=== PATIENT | male | born 1995 | race Caucasian/White ===

== ENCOUNTER 2018-08-09 16:17 | Emergency (ER) | payer OTHER ==
[~2018-08-09] VITALS: Ht 170.2 cm; Wt 95.4 kg
[2018-08-09] MEDS ORDERED: NAPR-837 PO (17:41)
[2018-08-09] MEDS ORDERED: NAPROXEN 250 MG TAB PO ONE (17:45)
[2018-08-09 17:46] VITALS: BP 128/64
--- NOTE | 2018-08-10 07:17 | REP ---
CHEST: Two views. There is no evidence of acute infiltrate. No pleural effusion is seen. The heart is normal in size. The mediastinal silhouette is unremarkable. The visualized osseous structures are intact. IMPRESSION: No acute pulmonary disease. Electronically Signed by Ezequiel Gutierrez MD 08/10/2018 09:22 A
== END 2018-08-09 17:54 | disposition home or self-care (01) ==
LOC: M ED 16:17
DX: M94.0 Chondrocostal junction syndrome [Tietze] (principal); Z87.891 Personal history of nicotine dependence

== ENCOUNTER → 2018-11-23 | Outpatient (CLI) | payer OTHER ==
[~2018-11-23] MED LIST: NAPR-837 PO
--- NOTE | 2018-11-23 18:34 | REP ---
TRIPLE PHASE BONE SCAN LOWER LEGS: Following the intravenous administration of 21.9 millicuries of technetium 99M MDP, patient's lower legs were imaged in the flow phase in the anterior and posterior projections showing symmetrical blood flow. Immediate blood pool and 2 hour delayed images are performed of the lower legs in multiple projections. There is minimal increased blood pooling in the region of the distal right tibia. Delayed images show increased linear uptake along the tibial shafts bilaterally suggesting bilateral stress periostitis or bills splints. There was mild increased delayed uptake in the distal right tibia, most consistent with a stress fracture. Electronically Signed by Ezequiel Gutierrez MD 11/24/2018 11:11 A
== END ==
LOC: M RAD 10:46
DX: M79.661 Pain in right lower leg (principal)
CPT/HCPCS: 78315; A9503

== ENCOUNTER 2019-06-17 14:56 | Inpatient (IN) | payer OTHER ==
[~2019-06-17] VITALS: Ht 170.2 cm; Wt 99.3 kg
[2019-06-17 15:54] LABS: HEMATOCRIT 43.7 % (42.0-52.0); HEMOGLOBIN 14.5 g/dl (13.5-17.5); MEAN CORPUSCULAR HEMOGLOBIN 29.6 pg (27.0-33.0); MEAN CORPUSCULAR HGB CONC 33.2 g/dl (32.0-36.5); MEAN CORPUSCULAR VOLUME 89.2 fl (80.0-96.0); PLATELET COUNT, AUTOMATED 265 10^3/uL (150-450)
[2019-06-17 16:12] LABS: AMPHETAMINES LEVEL URINE NEGATIVE (NEGATIVE); BARBITURATES URINE NEGATIVE (NEGATIVE); BENZODIAZEPINES URINE NEGATIVE (NEGATIVE); CANNABINOIDS URINE NEGATIVE (NEGATIVE); COCAINE METABOLITE URINE NEGATIVE (NEGATIVE); METHADONE URINE NEGATIVE (NEGATIVE); OPIATES URINE NEGATIVE (NEGATIVE); PHENCYCLIDINE URINE NEGATIVE (NEGATIVE)
[2019-06-17] MEDS ORDERED: LORazepam 2 MG TAB PO STA (16:21)
[2019-06-17 16:22] LABS: ACETAMINOPHEN LEVEL < 2.0 UG/ML (10.0-30.0); ALBUMIN 4.5 GM/DL (3.2-5.2); ALT/SGPT 43 U/L (12-78); BILIRUBIN,DIRECT 0.3 MG/DL (0.0-0.2); BILIRUBIN,TOTAL 0.9 MG/DL (0.2-1.0); BLOOD UREA NITROGEN 21 MG/DL (7-18); CALCIUM LEVEL 9.2 MG/DL (8.5-10.1); CARBON DIOXIDE LEVEL 29 MEQ/L (21-32); CHLORIDE LEVEL 106 MEQ/L (98-107); CREATININE FOR GFR 1.13 MG/DL (0.70-1.30); ETHYL ALCOHOL (ETHANOL) 0.003 % (0.000-0.010); GLOMERULAR FILTRATION RATE > 60.0 (>60); GLUCOSE, FASTING 89 MG/DL (70-100); SALICYLATE LEVEL < 1.7 MG/DL (5.0-30.0); SODIUM LEVEL 141 MEQ/L (136-145); TOTAL PROTEIN 7.5 GM/DL (6.4-8.2)
[2019-06-17] MEDS ORDERED: MULT-4 PO (18:10)
[2019-06-17] MEDS ORDERED: NAPR-885 PO (18:10)
[2019-06-17] MEDS ORDERED: ACETAMINOPHEN TAB 650MG DOSE (2X325MG) PO PRN (18:15)
[2019-06-17] MEDS ORDERED: MAALOX 30 ML SUSP *UDC PO PRN (18:15)
[2019-06-17] MEDS ORDERED: MOM 30ML SUSPENSION UDC PO PRN (18:15)
[2019-06-17] MEDS ORDERED: traZODone 50 MG TAB PO PRN (18:15)
[2019-06-17 21:00] VITALS: BP 145/90
[2019-06-18] MEDS ORDERED: NICOTINE 21MG/24HR 1 EA TRANSDERMAL TD SCH (05:00)
[2019-06-18 06:09] VITALS: BP 98/50
--- NOTE | 2019-06-18 08:59 | HPEPDOC ---
[facility] Medical History & Physical Date of Admission Jun 18, 2019 Date of Service: Jun 18, 2019 History and Physical CHIEF COMPLAINT: Depression HISTORY OF PRESENT ILLNESS: 23-year-old male with past medical history of anxie ty and depression is admitted to inpatient mental health unit for worsening depression. 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 Patient is admitted this time for worsening depression, no other complaints. Patient does not have any medical complaints at this time, denies any shortness of breath, chest pain, nausea, vomiting, abdominal pain or diarrhea. 10 point review of system is negative except for above PAST MEDICAL HISTORY: 1. Anxiety. 2. Depression. PAST SURGICAL HISTORY: 1. Tonsillectomy. SOCIAL HISTORY: Social smoker. Previous heavy drinker, quit 6 months ago. Denies drug use FAMILY HISTORY: No family history of cancer, heart disease ALLERGIES: Please see below. HOME MEDICATIONS: Please see below. PHYSICAL EXAMINATION: VITAL SIGNS: Please see below. GENERAL: No distress HEENT: Normocephalic, atraumatic, moist mucous membranes NECK: Supple CARDIOVASCULAR EXAMINATION: S1, S2, no murmurs RESPIRATORY EXAMINATION: Clear to auscultation, no wheezing ABDOMINAL EXAMINATION: Soft, nontender, nondistended, positive bowel sounds EXTREMITIES: Range of motion intact SKIN: No rash NEUROLOGICAL EXAMINATION: Alert and oriented 3, no focal deficits PSYCHIATRIC EXAMINATION: Calm and cooperative LABORATORY DATA: See below. MICROBIOLOGY: Please see below. ASSESSMENT: 23-year-old male with past medical history of anxiety and depression is admitted inpatient mental health unit for worsening depression. PLAN: 1. Depression. Management as per primary team Patient does not have any active medical issues at this time, please reconsult as needed. Vital Signs Vital Signs Date Time Temp Pulse Resp B/P (MAP) Pulse Ox O2 Delivery O2 Flow Rate FiO2 06/18/19 06:09 98.2 81 16 98/50 (66) 06/17/19 21:00 99 Room Air Laboratory Data Labs 24H Laboratory Tests 2 06/17/19 15:26: Nucleated Red Blood Cells % (auto) 0.0, Anion Gap 6L, Glomerular Filtration Rate > 60.0, Calcium Level 9.2, Total Bilirubin 0.9, Direct Bilirubin 0.3H, Aspartate Amino Transf (AST/SGOT) 37, Alanine Aminotransferase (ALT/SGPT) 43, Alkaline Phosphatase 70, Total Protein 7.5, Albumin 4.5, Albumin/Globulin Ratio 1.50, Thyroid Stimulating Hormone (TSH) 1.090, Salicylates Level < 1.7L, Urine Opiates Screen NEGATIVE, Urine Methadone Screen NEGATIVE, Acetaminophen Level < 2.0L, Urine Barbiturates Screen NEGATIVE, Urine Phencyclidine Screen NEGATIVE, Urine Amphetamines Screen NEGATIVE, Urine Benzodiazepines Screen NEGATIVE, Urine Cocaine Metabolite Screen NEGATIVE, Urine Cannabinoids Screen NEGATIVE, Ethyl Alcohol Level 0.003 CBC/BMP Laboratory Tests 06/17/19 15:26 Home Medications Scheduled Multivit-Min/Folic/Vit K/Lycop (Men's Multivitamin Tablet) 1 Each Tablet, 1 EACH PO DAILY Scheduled PRN Naproxen (Naproxen) 500 Mg Tablet, 500 MG PO BID PRN for PAIN Allergies Coded Allergies: No Known Drug Allergies (Verified Allergy, Unknown, 06/17/19) A-FIB/CHADSVASC A-FIB History Current/History of A-Fib/PAF?: No LILIANA GALO MD Jun 18, 2019 08:59
[2019-06-18] MEDS: NICOTINE 21MG/24HR 1 EA TRANSDERMAL TD SCH (10:07)
--- NOTE | 2019-06-18 11:15 | MHHPEPDOC ---
General Date Of Admission: Jun 17, 2019 Legal Status: 9.39 Chief Complaint "I want to shoot myself.". History of Present Illness HISTORY OF THE PRESENT ILLNESS: Patient is a 23 -year-old , AD, male, with a history of depression and no history of psych admission/SA who was sent to ED by EMS after he told a friend he was having suicidal thoughts and then was referred to [facility] to evaluate and then sent here. Per ED, pt reported feeling frustrated and depressed due to issus with his Alejandro and others in the . Pt reported in the ED significant stressors regarding the and his Alejandro that brought him to the point of driving to [place] where his in laws live and where he keeps his shot gun with plans to shoot himself but his called called just to talk and that caused him to turn around. 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 Endorsed to trust in his leadership as he feels he's treated poorly by them and called names. Enorsed suicidal thaoughts for the past year due to his Alejandro. Psychiatric Review of Systems Depression (2 or more weeks): depressed mood, difficulty concentrating, suicidal thoughts Ale (4 or more days of): denies Psychosis: denies PTSD: denies Anxiety: situational anxiety, stressor related anxiety Anxiety/ 6 months or more of: restlessness, keyed up, difficulty concentrating, irritability Past Psychiatric History Previous Psychiatric Diagnosis: denies Previous Psychiatric Admissions: denies Suicide Attempts: denies Psychiatric Follow-up: [facility] Psychiatric medications: denies Past Medical History Medical Problems tibia fracture 1-2yrs ago Head Injury: No Seizures: No Hospitalizations: No Surgeries: No Family Medical/Psychiatric HX Medical Problems noncontributory Psychiatric Disorders: No Addiction: Yes (father is an alcoholic) Suicide Attemps/Completions: No Addiction History nicotine, other (utox neg) Social History Childhood: born and raised in [place], [place]; 2 parent home, 1 younger brother, father was an alcoholic, fair childhood Abuse/Trauma:denies Current Living Situation: lives in [place] with his Education: high school edu Employment: [employer], [employer], [employer], 3yrs Social Support Marital: , no kids Mental Status Examination General Appearance: well groomed, appears stated age, hospital scubs/clothing Build: overweight Demeanor: average Eye Contact: average Activity: average Behavior: cooperative, other (playing the victum) Speech: clear, normal volume, reg/rate,rhythm,volume Mood: depressed, anxious Mood "anxious" Affect: full, appropriate, anxious Thought Process: logical/linear, intact Thought Content (Delusions): none reported, denies SI, HI, AVH Thought Content (Other): none reported Thought Content (Aggressive): none reported Perception (Hallucinations): none reported Perception (Other): none reported Cognition (Impairment of): none reported Cognition(Intelligence Est.): average Oriented: Awake, Alert, Oriented times three Insight: fair Judgment: Fair Psychosis: Denies Diagnoses Unspecified depression R/O adjustment d/o with depressed mood and anxiety r/o Generalized anxiety d/o r/o malingering d/o A-FIB/CHADSVASC A-FIB History Current/History of A-Fib/PAF?: No Assessment Pt seen and states "I tried to Cameron Nicole" myself stating he owns a gun that is kept at his parent's house in [place] and that he was driving there to shot himself but his called him which made him stop and turn around and go home. 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 States he's had to go to the field a lot and has had to cancel his mental ronaldo and medical appts and states earlier this week in the field and had to do a run but due to his injury "I slowed every down" which caused him sig nificant anxiety and feeling like "a piece of shit." States "I had going to work" due to the anxiety he feels at work. Feels his leadership hate's him and is disrespectful. States his daily anxiety is the cause of depression. Discussed starting zoloft for anxiety with mood and anxiety, risks/benefits discussed, and pt agreeable. Will provide vistaril prn anxiety. Denies SI/HI, hallucinations, delusions today. Feels safe here. Initial Treatment Plan 1. Patient was admitted on a 9.39 status. 2. Complete history was obtained. 3. With patients permission, family will be contacted and database will be expanded. 4. Patients medication regimen will be reviewed and changed accordingly. 5. Patient will be provided with protected environment. 6. Patient will be treated with individual, group, and milieu therapies. 7. Patient will receive supportive psych-education. 8. Discharge planning will commence immediately. 9. Outpatient follow-up treatment will be strongly recommended. 10. The initial treatment plan will focus initially on: * Depression. * Risk for suicide. 11. zoloft 25mg daily, vistaril 50mg q4hr prn anxiety ESTIMATED LENGTH OF STAY: 5-7 DAYS. TIME SPENT COUNSELING AND COORDINATING INITIAL CARE: 60 minutes. Vital Signs Vital Signs Date Time Temp Pulse Resp B/P (MAP) Pulse Ox O2 Delivery O2 Flow Rate FiO2 06/18/19 06:09 98.2 81 16 98/50 (66) 06/17/19 21:00 99 Room Air Laboratory Data 24H Labs Laboratory Tests 2 06/17/19 15:26: Nucleated Red Blood Cells % (auto) 0.0, Anion Gap 6L, Glomerular Filtration Rate > 60.0, Calcium Level 9.2, Total Bilirubin 0.9, Direct Bilirubin 0.3H, Aspartate Amino Transf (AST/SGOT) 37, Alanine Aminotransferase (ALT/SGPT) 43, Alkaline Phosphatase 70, Total Protein 7.5, Albumin 4.5, Albumin/Globulin Ratio 1.50, Thyroid Stimulating Hormone (TSH) 1.090, Salicylates Level < 1.7L, Urine Opiates Screen NEGATIVE, Urine Methadone Screen NEGATIVE, Acetaminophen Level < 2.0L, Urine Barbiturates Screen NEGATIVE, Urine Phencyclidine Screen NEGATIVE, Urine Amphetamines Screen NEGATIVE, Urine Benzodiazepines Screen NEGATIVE, Urine Cocaine Metabolite Screen NEGATIVE, Urine Cannabinoids Screen NEGATIVE, Ethyl Alcohol Level 0.003 CBC/BMP Laboratory Tests 06/17/19 15:26 Medications Scheduled Multivit-Min/Folic/Vit K/Lycop (Men's Multivitamin Tablet) 1 Each Tablet, 1 EACH PO DAILY, (Reported) Scheduled PRN Naproxen (Naproxen) 500 Mg Tablet, 500 MG PO BID PRN for PAIN, (Reported) Allergies Coded Allergies: No Known Drug Allergies (Verified Allergy, Unknown, 06/17/19) CAMRYN SIMONS DO Jun 18, 2019 10:05 am
[2019-06-18] MEDS ORDERED: SERTRALINE HCL 25 MG TABLET PO ONE (11:30)
[2019-06-18 16:18] VITALS: BP 122/82
[2019-06-18] MEDS: hydrOXYzine 50 MG TAB PO PRN (19:36)
[2019-06-19 06:07] VITALS: BP 130/76
[2019-06-19] MEDS: SERTRALINE HCL 25 MG TABLET PO SCH (09:17)
[2019-06-19] MEDS: NICOTINE 21MG/24HR 1 EA TRANSDERMAL TD SCH (09:18)
[2019-06-19] MEDS: hydrOXYzine 50 MG TAB PO PRN ×2 (09:19→21:25)
[2019-06-19] MEDS ORDERED: traZODone 100 MG TAB PO PRN (12:15)
[2019-06-19 15:30] VITALS: BP 153/81
--- NOTE | 2019-06-19 15:57 | MHIPN ---
DATE: 06/19/2019 The patient today states, "I am doing better." He feels that this is due to the fact that he is away from the stress that he was under. He denies being suicidal. He says that he was still having frequent awakening last night with trazodone, which is only at 50 mg right now. MENTAL STATUS EXAMINATION: He is alert and oriented times three. He is verbally spontaneous. Eye contact is good. There is no formal thought disorder noted. Mood is "better." Affect is full range and appropriate to mood. He is not psychotic. He denies suicidal or homicidal ideations. Concentration is fair. Memory is intact. Insight and judgment fair. DIAGNOSES: 1. Unspecified depressive disorder. TREATMENT PLAN: At this point, we will continue to monitor the patient for continued elevation and stabilization of his mood and continued resolution of suicidal ideations. He seems to be tolerating his Zoloft and Vistaril well so far.
[2019-06-20 06:13] VITALS: BP 131/80
[2019-06-20] MEDS: SERTRALINE HCL 25 MG TABLET PO SCH (08:54)
[2019-06-20] MEDS: hydrOXYzine 50 MG TAB PO PRN ×2 (08:54→22:23)
[2019-06-20] MEDS: NICOTINE 21MG/24HR 1 EA TRANSDERMAL TD SCH (08:56)
--- NOTE | 2019-06-20 13:40 | MHIPN ---
DATE OF SERVICE: 06/20/2019 The patient today states that he was still tossing and turning last night and so this is despite the increase in the Zoloft to 100 mg. He says that his mood continues to get better, but again he feels this is because of the fact that he is in a stress free environment in the hospital. He is denying suicidal thoughts. MENTAL STATUS EXAMINATION: This patient is alert and oriented times three. Eye contact fairly good. He is verbally spontaneous. There is no formal thought disorder noted. His mood is better. Affect is full range and appropriate. He is not psychotic. He is not suicidal or homicidal. Concentration is fair. Memory intact. Insight and judgment is fair. DIAGNOSIS: Unspecified depressive disorder. TREATMENT PLAN: At this point, will continue to monitor the patient for continued elevation and stabilization of his mood and continued resolution of suicidal ideations.
[2019-06-20 16:03] VITALS: BP 139/69
[2019-06-20] MEDS: traZODone 50 MG TAB PO PRN (22:39)
[2019-06-21 06:51] VITALS: BP 99/52
--- NOTE | 2019-06-21 09:11 | MHIPNPDOC ---
[facility] Progress Note Progress Note DATE OF SERVICE: 06/21/19 HISTORY: Patient is a 23 -year-old , AD, male, with a history of depression and no history of psych admission/SA who was sent to ED by EMS after he told a friend he was having suicidal thoughts and then was referred to [facility] to evaluate and then sent here. Per ED, pt reported feeling frustrated and depressed due to issus with his Alejandro and others in the . Pt reported in the ED significant stressors regarding the and his Alejandro that brought him to the point of driving to [place] where his in laws live and where he keeps his shot gun with plans to shoot himself but his called called just to talk and that caused him to turn around. 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 Endorsed to trust in his leadership as he feels he's treated poorly by them and called names. Enorsed suicidal thaoughts for the past year due to his Alejandro. Pt seen and states "I tried to Cameron Cobain" myself stating he owns a gun that is kept at his parent's house in [place] and that he was driving there to shot himself but his called him which made him stop and turn around and go home. 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 States he's had to go to the field a lot and has had to cancel his mental ronaldo and medical appts and states earlier this week in the field and had to do a run but due to his injury "I slowed every down" which caused him significant anxiety and feeling like "a piece of shit." States "I had going to work" due to the anxiety he feels at work. Feels his leadership hate's him and is disrespectful. States his daily anxiety is the cause of depression. Discussed starting zoloft for anxiety with mood and anxiety, risks/benefits discussed, and pt agreeable. Will provide vistaril prn anxiety. Denies SI/HI, hallucinations, delusions today. Feels safe here. VITAL SIGNS: See below. NEW TEST RESULTS: See below. CURRENT MEDICATIONS: See below. MENTAL STATUS EXAMINATION: General Appearance: well groomed, appears stated age, hospital scrubs/clothing Build: overweight Demeanor: average Eye Contact: average Activity: average Behavior: cooperative, other (playing the victim), manipulative Speech: clear, normal volume, reg/rate,rhythm,volume Mood: less depressed, continues to have anxious Mood "ok" Affect: full, appropriate, anxious Thought Process: logical/linear, intact, attempting to be secretive and manipulative Thought Content (Delusions): none reported, denies SI, HI, AVH Thought Content (Other): none reported Thought Content (Aggressive): none reported Perception (Hallucinations): none reported Perception (Other): none reported Cognition (Impairment of): none reported Cognition(Intelligence Est.): average Oriented: Awake, Alert, Oriented times three Insight: fair Judgment: Fair Psychosis: Denies DIAGNOSES: Unspecified depression R/O adjustment d/o with depressed mood and anxiety r/o Generalized anxiety d/o r/o malingering d/o ASSESSMENT:Pt seen and states that his mood is "ok". States he's having anxiety mostly regarding meeting with his Alejandro and having to discuss with them his reasons for admission which he admits he doesn't want them to know but advised 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 States vistaril isn't very beneficial for his anxiety. Discussed starting inderal for anxiety with pt, risks/benefits dis cussed, and pt agrees to start it. States he slept well last night. Feels he is tolerating his zoloft and it's beneficial. He is attending groups and finding them helpful. He denies SI/HI, hallucinations, delusions. Pt feels safe here. MANAGEMENT PLAN: start inderal tid for anxiety, d/c planning zoloft 25mg daily vistaril 50mg q4hr prn anxiety inderal 10mg tid TIME SPENT: 30 minutes. Vital Signs Vital Signs Date Time Temp Pulse Resp B/P (MAP) Pulse Ox O2 Delivery O2 Flow Rate FiO2 2/3/20 06:51 97.0 77 12 99/52 (68) 06/18/19 16:18 99 Room Air Current Medications Current Medications Medications (Trade) Dose Ordered Sig/Anna Route PRN Reason Start Time Stop Time Status Last Admin Dose Admin Acetaminophen (Tylenol Tab) 650 mg Q6HP PRN PO HEADACHE or DISCOMFORT 06/17/19 18:15 Al Hydrox/Mg Hydrox/Simethicone (Mylanta) 30 ml Q4HP PRN PO HEARTBURN/INDIGESTION 06/17/19 18:15 Home Med (Med Rec Complete!) ASDIRECTED XX 06/17/19 18:15 06/17/19 18:12 DC Hydroxyzine HCl (Atarax) 50 mg Q4HP PRN PO ANXIETY/AGITATION 06/18/19 11:15 06/20/19 22:23 Lorazepam (Ativan) 2 mg STAT STAT PO 06/17/19 16:21 06/17/19 16:22 DC 06/17/19 16:26 Magnesium Hydroxide (Milk Of Magnesia) 30 ml DAILYPRN PRN PO CONSTIPATION 06/17/19 18:15 Nicotine (Nicoderm Cq 21mg) 1 patch DAILY TD 06/18/19 05:00 06/18/19 04:45 DC Nicotine (Nicoderm Cq 21mg) 1 patch DAILY TD 06/18/19 09:00 06/20/19 08:56 Sertraline HCl (Zoloft) 25 mg DAILY PO 06/19/19 09:00 06/20/19 08:54 Trazodone HCl (Desyrel) 50 mg QHSP PRN PO INSOMNIA 06/17/19 18:15 06/19/19 12:16 DC 06/18/19 21:49 Trazodone HCl (Desyrel) 100 mg QHSP PRN PO INSOMNIA 06/19/19 12:15 06/20/19 11:31 DC 06/19/19 22:01 Trazodone HCl (Desyrel) 150 mg QHSP PRN PO INSOMNIA 06/20/19 11:30 06/20/19 22:39 Allergies Coded Allergies: No Known Drug Allergies (Verified Allergy, Unknown, 06/17/19) CAMRYN SIMONS DO Jun 21, 2019 9:11 am
[2019-06-21] MEDS: SERTRALINE HCL 25 MG TABLET PO SCH (10:08)
[2019-06-21] MEDS: PROPRANOLOL 10 MG TAB PO SCH ×3 (10:09→20:53)
[2019-06-21] MEDS: NICOTINE 21MG/24HR 1 EA TRANSDERMAL TD SCH (10:10)
[2019-06-21 16:00] VITALS: BP 135/94
[2019-06-21] MEDS: traZODone 50 MG TAB PO PRN (22:15)
[2019-06-22 06:14] VITALS: BP 115/58
[2019-06-22] MEDS: PROPRANOLOL 10 MG TAB PO SCH ×3 (08:18→20:44)
[2019-06-22] MEDS: SERTRALINE HCL 25 MG TABLET PO SCH (08:18)
[2019-06-22] MEDS: NICOTINE 21MG/24HR 1 EA TRANSDERMAL TD SCH (08:18)
--- NOTE | 2019-06-22 10:11 | MHIPNPDOC ---
[facility] Progress Note Progress Note DATE OF SERVICE: 06/22/19 HISTORY: Patient is a 23 -year-old , AD, male, with a history of depression and no history of psych admission/SA who was sent to ED by EMS after he told a friend he was having suicidal thoughts and then was referred to [facility] to evaluate and then sent here. Per ED, pt reported feeling frustrated and depressed due to issus with his Alejandro and others in the . Pt reported in the ED significant stressors regarding the and his Alejandro that brought him to the point of driving to [place] where his in laws live and where he keeps his shot gun with plans to shoot himself but his called called just to talk and that caused him to turn around. 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 Endorsed to trust in his leadership as he feels he's treated poorly by them and called names. Enorsed suicidal thaoughts for the past year due to his Alejandro. Pt seen and states "I tried to Cameron Cobain" myself stating he owns a gun that is kept at his parent's house in [place] and that he was driving there to shot himself but his called him which made him stop and turn around and go home. 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 States he's had to go to the field a lot and has had to cancel his mental ronaldo and medical appts and states earlier this week in the field and had to do a run but due to his injury "I slowed every down" which caused him significant anxiety and feeling like "a piece of shit." States "I had going to work" due to the anxiety he feels at work. Feels his leadership hate's him and is disrespectful. States his daily anxiety is the cause of depression. Discussed starting zoloft for anxiety with mood and anxiety, risks/benefits discussed, and pt agreeable. Will provide vistaril prn anxiety. Denies SI/HI, hallucinations, delusions today. Feels safe here. VITAL SIGNS: See below. NEW TEST RESULTS: See below. CURRENT MEDICATIONS: See below. MENTAL STATUS EXAMINATION: General Appearance: well groomed, appears stated age, hospital scrubs/clothing Build: overweight Demeanor: average Eye Contact: average Activity: average Behavior: cooperative, other (playing the victim), manipulative Speech: clear, normal volume, reg/rate,rhythm,volume Mood: less depressed, less anxious Mood "alright" Affect: full, appropriate, less anxious Thought Process: logical/linear, intact Thought Content (Delusions): none reported, denies SI, HI, AVH Thought Content (Other): none reported Thought Content (Aggressive): none reported Perception (Hallucinations): none reported Perception (Other): none reported Cognition (Impairment of): none reported Cognition(Intelligence Est.): average Oriented: Awake, Alert, Oriented times three Insight: fair Judgment: Fair Psychosis: Denies DIAGNOSES: Unspecified depression R/O adjustment d/o with depressed mood and anxiety r/o Generalized anxiety d/o r/o malingering d/o ASSESSMENT:Pt seen and states that his mood is "alright". 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 States inderal is very beneficial for his anxiety, likes it, and is tolerating it well. States he slept well last night. Feels he is tolerating his zoloft and it's beneficial. He is attending groups and finding them helpful. He denies SI/HI, hallucinations, delusions. Pt feels safe here. Hopeful to go home tomorrow with his Alejandro. MANAGEMENT PLAN: d/c planning tomorrow zoloft 25mg daily vistaril 50mg q4hr prn anxiety inderal 10mg tid TIME SPENT: 30 minutes. Vital Signs Vital Signs Date Time Temp Pulse Resp B/P (MAP) Pulse Ox O2 Delivery O2 Flow Rate FiO2 06/22/19 08:18 90 130/82 06/22/19 06:14 97.8 18 06/18/19 16:18 99 Room Air Current Medications Current Medications Medications (Trade) Dose Ordered Sig/Anna Route PRN Reason Start Time Stop Time Status Last Admin Dose Admin Acetaminophen (Tylenol Tab) 650 mg Q6HP PRN PO HEADACHE or DISCOMFORT 06/17/19 18:15 Al Hydrox/Mg Hydrox/Simethicone (Mylanta) 30 ml Q4HP PRN PO HEARTBURN/INDIGESTION 06/17/19 18:15 Home Med (Med Rec Complete!) ASDIRECTED XX 06/17/19 18:15 06/17/19 18:12 DC Hydroxyzine HCl (Atarax) 50 mg Q4HP PRN PO ANXIETY/AGITATION 06/18/19 11:15 06/20/19 22:23 Lorazepam (Ativan) 2 mg STAT STAT PO 06/17/19 16:21 06/17/19 16:22 DC 06/17/19 16:26 Magnesium Hydroxide (Milk Of Magnesia) 30 ml DAILYPRN PRN PO CONSTIPATION 06/17/19 18:15 Nicotine (Nicoderm Cq 21mg) 1 patch DAILY TD 06/18/19 05:00 06/18/19 04:45 DC Nicotine (Nicoderm Cq 21mg) 1 patch DAILY TD 06/18/19 09:00 06/22/19 08:18 Propranolol HCl (Inderal) 10 mg TID PO 06/21/19 09:00 06/22/19 08:18 Sertraline HCl (Zoloft) 25 mg DAILY PO 06/19/19 09:00 06/22/19 08:18 Trazodone HCl (Desyrel) 50 mg QHSP PRN PO INSOMNIA 06/17/19 18:15 06/19/19 12:16 DC 06/18/19 21:49 Trazodone HCl (Desyrel) 100 mg QHSP PRN PO INSOMNIA 06/19/19 12:15 06/20/19 11:31 DC 06/19/19 22:01 Trazodone HCl (Desyrel) 150 mg QHSP PRN PO INSOMNIA 06/20/19 11:30 06/21/19 22:15 Allergies Coded Allergies: No Known Drug Allergies (Verified Allergy, Unknown, 06/17/19) CAMRYN SIMONS DO Jun 22, 2019 10:11 am
[2019-06-22 16:04] VITALS: BP 134/77
[2019-06-22] MEDS: traZODone 50 MG TAB PO PRN (22:43)
[2019-06-23 07:26] VITALS: BP 130/84
[2019-06-23] MEDS: SERTRALINE HCL 25 MG TABLET PO SCH (08:21)
[2019-06-23 08:22] VITALS: BP 132/76
[2019-06-23] MEDS: PROPRANOLOL 10 MG TAB PO SCH (08:22)
[2019-06-23] MEDS: NICOTINE 21MG/24HR 1 EA TRANSDERMAL TD SCH (08:22)
[2019-06-23] MEDS ORDERED: TRAZ-252 PO (08:37)
[2019-06-23] MEDS ORDERED: PROP10TA56 PO (08:37)
[2019-06-23] MEDS ORDERED: SERT25TA21 PO (08:37)
[2019-06-23] MEDS ORDERED: HYDR50TA70 PO (08:37)
--- NOTE | 2019-06-23 08:37 | MHDSPDOC ---
[facility] Discharge Summary Discharge Summary DATE OF ADMISSION: Jun 17, 2019 at 6:12 pm DATE OF DISCHARGE: Jun 23, 2019 DISCHARGE DIAGNOSES: Unspecified depression R/O adjustment d/o with depressed mood and anxiety r/o Generalized anxiety d/o r/o malingering d/o REASON FOR ADMISSION: Patient is a 23 -year-old , AD, male, with a history of depression and no history of psych admission/SA who was sent to ED by EMS after he told a friend he was having suicidal thoughts and then was referred to [facility] to evaluate and then sent here. Per ED, pt reported feeling frustrated and depressed due to issus with his Alejandro and others in the . Pt reported in the ED significant stressors regarding the and his Alejandro that brought him to the point of driving to [place] where his in laws live and where he keeps his shot gun with plans to shoot himself but his called called just to talk and that caused him to turn around. 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 Endorsed to trust in his leadership as he feels he's treated poorly by them and called names. Enorsed suicidal thaoughts for the past year due to his Alejandro. Pt seen and states "I tried to [place] Cobain" myself stating he owns a gun that is kept at his parent's house in [place] and that he was driving there to shot himself but his called him which made him stop and turn around and go home. 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 States he's had to go to the field a lot and has had to cancel his mental ronaldo and medical appts and states earlier this week in the field and had to do a run but due to his injury "I slowed every down" which caused him significant anxiety and feeling like "a piece of shit." States "I had going to work" due to the anxiety he feels at work. Feels his leadership hate's him and is disrespectful. States his daily anxiety is the cause of depression. Discussed starting zoloft for anxiety with mood and anxiety, risks/benefits discussed, and pt agreeable. Will provide vistaril prn anxiety. Denies SI/HI, hallucinations, delusions today. Feels safe here. CONSULTANTS INVOLVED: none TREATMENT AND PROGRESS ON THE UNIT : Pt was admitted to [facility], seen for psychiatric assessment and started on zoloft 25mg daily for mood and inderal 10mg tid for anxiety. He was provided vistaril 50mg tid prn anxiety and trazodone 50mg qhs prn insomnia. Pt found his medications beneficial and tolerated them well. He attended groups daily during his stay. His symptoms improved with treatment. On day of discharge he denied depression, anxiety, insomnia, SI/HI, hallucinations, delusions. He was discharged home after Alejandro meeting with follow-up at [facility]. He felt safe for discharge DISCHARGE ASSESSMENT: Pt seen and states that his mood is "good" and that he's looking forward to going home today with his Alejandro. States his is supported and had her parents put the gun the have in a place unknown to the pt. States inderal is very beneficial for his anxiety, likes it, and is tolerating it well. States he slept well last night. Feels he is tolerating his zoloft and it's beneficial. He is attending groups and finding them helpful. He denies depression, anxiety, insomnia, SI/HI, hallucinations, delusions. Pt feels safe d/c home today with his Alejandro. MENTAL STATUS EXAMINATION ON DISCHARGE: General Appearance: well groomed, appears stated age, hospital scrubs/clothing Build: overweight Demeanor: average Eye Contact: average Activity: average Behavior: cooperative Speech: clear, normal volume, reg/rate,rhythm,volume Mood: euthymic, full range Mood "good" Affect: full, appropriate, congruent Thought Process: logical/linear, intact Thought Content (Delusions): none reported, denies SI, HI, AVH Thought Content (Other): none reported Thought Content (Aggressive): none reported Perception (Hallucinations): none reported Perception (Other): none reported Cognition (Impairment of): none reported Cognition(Intelligence Est.): average Oriented: Awake, Alert, Oriented times three Insight: good Judgment: good Psychosis: Denies MEDICATIONS ON DISCHARGE: zoloft 25mg daily vistaril 50mg tid prn anxiety trazodone 50mg qhs prn insomnia inderal 10mg tid PLAN/FOLLOWUP ARRANGEMENTS: AL home with [facility] with follow-up at [facility]. The amount of time spent in the coordination of care for this patient was approximately 30 minutes. Vital Signs/I&Os Vital Signs Date Time Temp Pulse Resp B/P (MAP) Pulse Ox O2 Delivery O2 Flow Rate FiO2 06/23/19 08:22 88 132/76 06/23/19 07:26 98.0 18 06/18/19 16:18 99 Room Air Medications Scheduled Multivit-Min/Folic/Vit K/Lycop (Men's Multivitamin Tablet) 1 Each Tablet, 1 EACH PO DAILY, (Reported) Scheduled PRN Naproxen (Naproxen) 500 Mg Tablet, 500 MG PO BID PRN for PAIN, (Reported) Allergies Coded Allergies: No Known Drug Allergies (Verified Allergy, Unknown, 06/17/19) CAMRYN SIMONS DO Jun 23, 2019 8:37 am
== END 2019-06-23 11:54 | disposition home or self-care (01) | DRG 881 ==
LOC: M ED 14:56 → M ED INP 18:12 → M PSY 20:03
PROVIDERS: ADMIT Psychiatry & Neurology Psychiatry; ATTEND Psychiatry & Neurology Psychiatry
DX: F32.9 Major depressive disorder, single episode, unspecified (principal); F41.1 Generalized anxiety disorder; F43.23 Adjustment disorder with mixed anxiety and depressed mood; Z76.5 Malingerer [conscious simulation]; Z81.1 Family history of alcohol abuse and dependence; Z56.4 Discord with boss and workmates; Z90.49 Acquired absence of other specified parts of digestive tract; F17.200 Nicotine dependence, unspecified, uncomplicated

== ENCOUNTER → 2023-06-24 | Outpatient (CLI) | payer OTHER ==
[~2023-06-24] MED LIST changes: +HYDR50TA70 PO; +ISOVUE-300 61% 100ML VIAL As Ordered ONE; +LIDOCAINE 1% MDV 20ML VIAL As Ordered ONE; +MULT-4 PO; +NAPR-885 PO; +PROP10TA56 PO; +SERT25TA21 PO; +TRAZ-252 PO; +TRIAMCINOLONE ACETONIDE SUSP 40MG/ML 1ML VIAL As Ordered ONE
== END ==
LOC: M RAD 14:42
PROVIDERS: ATTEND Orthopaedic Surgery
DX: M25.551 Pain in right hip (principal)
CPT/HCPCS: 20610; 77002; J3301; Q9967

== ENCOUNTER 2023-10-07 11:33 | Day surgery (SDC) | payer OTHER ==
[~2023-10-07] VITALS: Ht 172.7 cm; Wt 88.0 kg
[~2023-10-07 11:33] MED LIST changes: +ASHW500C PO; -ISOVUE-300 61% 100ML VIAL As Ordered ONE; -LIDOCAINE 1% MDV 20ML VIAL As Ordered ONE; +OMEG10002 PO; +PRES10CA2 PO; -TRIAMCINOLONE ACETONIDE SUSP 40MG/ML 1ML VIAL As Ordered ONE; +VITA100093 PO; +[UNRECOGNIZED DRUG - OTHER]
[2023-10-07] MEDS: NS 1,000 ML IV ONE (12:17)
[2023-10-07] MEDS ORDERED: LIDOCAINE 2% 100MG/5ML SDV (FOR ANES.) As Ordered ONE (12:47)
[2023-10-07] MEDS ORDERED: propofoL 200 MG/20 ML VIAL As Ordered ONE (12:47)
[2023-10-07] MEDS ORDERED: propofoL 500 MG/50 ML VIAL As Ordered ONE (12:47)
[2023-10-07] MEDS ORDERED: fentaNYL 100 MCG/2 ML INJECTION As Ordered ONE (12:48)
[2023-10-07 13:45] VITALS: BP 136/86; TEMP 97.9; O2SAT 99
== END 2023-10-07 14:06 | disposition home or self-care (01) ==
LOC: M OPP 11:33
PROVIDERS: ATTEND Internal Medicine Gastroenterology
DX: K29.50 Unspecified chronic gastritis without bleeding (principal); R10.13 Epigastric pain; R11.2 Nausea with vomiting, unspecified
CPT/HCPCS: 43239; 88305; J3010

== ENCOUNTER 2023-12-03 10:01 | Day surgery (SDC) | payer OTHER ==
[~2023-12-03] VITALS: Ht 172.7 cm; Wt 92.6 kg
[~2023-12-03 10:01] MED LIST changes: +ACETAMINOPHEN 1000MG 100ML IV BAG As Ordered ONE; +CETI-24 PO; +FLUTISP; +MIDAZOLAM INJ 2MG/2ML VIAL As Ordered ONE; +fentaNYL 100 MCG/2 ML INJECTION As Ordered ONE; +propofoL 200 MG/20 ML VIAL As Ordered ONE; +propofoL 500 MG/50 ML VIAL As Ordered ONE
[2023-12-03] MEDS: ceFAZolin SOD 2 GM in IV 1 EA IV ONE (10:45)
[2023-12-03] MEDS: LIDOCAINE 1% SDV 30ML VIAL As Ordered ONE (11:02)
[2023-12-03 11:20] VITALS: BP 122/66; TEMP 97.9; O2SAT 97
== END 2023-12-03 12:05 | disposition home or self-care (01) ==
LOC: M SDC 10:01
PROVIDERS: ATTEND Podiatrist Foot & Ankle Surgery
DX: M67.471 Ganglion, right ankle and foot (principal); Z90.89 Acquired absence of other organs; Z87.891 Personal history of nicotine dependence
CPT/HCPCS: 28090; 88304; J0131; J0665; J0690; J2250; J3010

== ENCOUNTER 2024-07-10 17:33 | Emergency (ER) | payer OTHER ==
[~2024-07-10] VITALS: Ht 172.7 cm; Wt 86.6 kg
[~2024-07-10 17:33] MED LIST changes: -ACETAMINOPHEN 1000MG 100ML IV BAG As Ordered ONE; -MIDAZOLAM INJ 2MG/2ML VIAL As Ordered ONE; -fentaNYL 100 MCG/2 ML INJECTION As Ordered ONE; -propofoL 200 MG/20 ML VIAL As Ordered ONE; -propofoL 500 MG/50 ML VIAL As Ordered ONE
[2024-07-10 17:49] VITALS: TEMP 96.8
[2024-07-10] MEDS ORDERED: ONDANSETRON 4MG ORAL DISINTEGRATING TAB PO ONE (18:45)
[2024-07-10] MEDS ORDERED: ONDANSETRON 4MG 2ML VIAL As Ordered ONE (18:51)
[2024-07-10 18:52] LABS: HEMATOCRIT 48.7 % (42.0-52.0); HEMOGLOBIN 17.3 g/dl (13.5-17.5); MEAN CORPUSCULAR HEMOGLOBIN 30.9 pg (27.0-33.0); MEAN CORPUSCULAR HGB CONC 35.5 g/dl (32.0-36.5); PLATELET COUNT, AUTOMATED 258 10^3/uL (150-450); WHITE BLOOD COUNT 17.3 10^3/uL (4.0-10.0)
[2024-07-10] MEDS: ONDANSETRON 4MG 2ML VIAL IV ONE (18:54)
[2024-07-10 19:33] LABS: BLOOD UREA NITROGEN 20 MG/DL (9-23); CALCIUM LEVEL 10.6 MG/DL (8.5-10.1); CARBON DIOXIDE LEVEL 22 MMOL/L (20-31); CHLORIDE LEVEL 106 MMOL/L (98-107); GLOMERULAR FILTRATION RATE > 60.0 (>60); GLUCOSE, FASTING 154 MG/DL (60-100); POTASSIUM SERUM 4.5 MMOL/L (3.5-5.1); SODIUM LEVEL 143 MMOL/L (136-145)
[2024-07-10] MEDS: KETOROLAC 30 MG/ML 1ML VIAL IV ONE (20:13)
[2024-07-10] MEDS ORDERED: ONDA-282 PO (20:29)
[2024-07-10 20:41] VITALS: BP 135/76; O2SAT 99
== END 2024-07-10 20:42 | disposition home or self-care (01) ==
LOC: M ED 17:33
DX: R11.2 Nausea with vomiting, unspecified (principal); R19.7 Diarrhea, unspecified
CPT/HCPCS: 80048; 85027; 87486; 87581; 87633; 87798; 96374; 96375; 99283; J1885; J2405

== ENCOUNTER 2025-02-28 03:35 | Emergency (ER) | payer OTHER ==
[~2025-02-28] VITALS: Ht 172.7 cm; Wt 88.5 kg
[~2025-02-28 03:35] MED LIST changes: +ONDA-282 PO
[2025-02-28] MEDS ORDERED: CEPH500C PO (04:47)
[2025-02-28] MEDS: CEPHALEXIN 500 MG CAP PO ONE (04:51)
[2025-02-28 04:53] VITALS: BP 137/71; TEMP 97.5; O2SAT 97
== END 2025-02-28 04:54 | disposition home or self-care (01) ==
LOC: M ED 03:35
DX: L03.311 Cellulitis of abdominal wall (principal); F12.10 Cannabis abuse, uncomplicated; M54.50 Low back pain, unspecified; F41.9 Anxiety disorder, unspecified; Z79.2 Long term (current) use of antibiotics